=== PATIENT | male | born 1985 | race Caucasian/White ===

== ENCOUNTER 2017-11-30 23:40 | Emergency (ER) | payer OTHER ==
[~2017-11-30 23:40] MED LIST: INSU100V24 SQ; LANI SUBQ; OXYC-373 PO
--- NOTE | 2017-11-30 23:52 | ER Report ---
History and Physical Time Seen By MD: 23:51 Hx. of Stated Complaint: PT WAS WRESTLING AND FELT A POP IN R ANKLE, SWELLING HPI/ROS CHIEF COMPLAINT: ankle/leg injury HISTORY OF PRESENT ILLNESS: This is a 32 year old male. He was wrestling tonight , and felt a pop in lateral ankle area/lower leg. Severe pain and now with associated swelling. Hurts to move it or bear weight. Normal sensation. can move toes. Allergies: Coded Allergies: No Known Drug Allergies (Unverified , 10/31/16) Home Meds Active Scripts Oxycodone Hcl/Acetaminophen (PERCOCET 5-325 MG TABLET) 1 Each Tablet, 1 EACH PO Q4H Y for PAIN, #12 TAB 0 Refills Prov:SONYA RUBALCAVA MD 12/01/17 Reported Medications Propranolol Hcl (PROPRANOLOL HCL) 10 Mg Tablet, 10 MG PO BID 12/01/17 Escitalopram Oxalate (LEXAPRO) 20 Mg Tablet, 20 MG PO QDAY, TAB 12/01/17 Insulin Detemir (LEVEMIR) 100 Unit/Ml Injs, 100 UNIT SUBQ 12/01/17 Insulin Lispro 100 Un/Ml Vial (HUMALOG 100 U/ML VIAL) 100 Unit/1 Ml Vial, 100 UNIT SQ SLIDING SCALE, VIAL 10/06/14 Discontinued Reported Medications Insulin Glargine (LANTUS) 100 Unit/Ml Soln, 22 UNIT SUBQ HS 10/06/14 Discontinued Scripts Oxycodone Hcl/Acetaminophen (OXYCODONE-ACETAMINOPHEN 5-325) 1 Each Tablet, 1-2 TAB PO Q4H Y for PAIN, #30 TAB Prov:ERLIN PALACIOS PA-C 10/31/16 Insulin Glargine (LANTUS) 100 Unit/Ml Soln, 24 UNIT SUBQ QHS, #1 BOTTLE Prov:MARY LAST MD 10/07/14 Reviewed Nurses Notes: Yes Hx Smoking: Yes Smoking Status: Current: Every Day Smoker Exposure to Second Hand Smoke?: No Hx Substance Use Disorder: No Hx Alcohol Use: Yes Constitutional Vital Sign - Last 24 Hours 11/30/17 11/30/17 11/30/17 12/01/17 23:40 23:42 23:44 00:10 Temp 98.9 Pulse ??? 100 ??? Resp 18 B/P (MAP) 176/91 (119) 176/91 Pulse Ox 94 O2 Delivery Room Air 12/01/17 12/01/17 12/01/17 12/01/17 00:25 00:40 00:55 01:08 Pulse 83 ? B/P (MAP) 137/78 (97) 12/01/17 01:10 Pulse 76 Pulse Ox 91 Physical Exam General: Alert, no distress. Musculoskeletal: swelling and pain with palpation lower leg fibular side. Neuro: normal sensation Cardiovascular: Pulses and cap refill normal. Skin: no skin breakdown. Medical Decision Making EKG/Imaging Imaging RIGHT LOWER LEG and ANKLE: Indication: Pain and swelling. Technique: Multiple AP, lateral, and oblique views were obtained. Comparison: None. Findings: There is an oblique fracture through the distal fibula, with minimal displacement. The tibia and talus appear intact. There is no widening or subluxation of the joint. The proximal tibia and fibula are intact. There is normal mineralization. Localized soft tissue swelling is observed on the lateral aspect of the ankle. IMPRESSION: Acute fracture of the distal right fibula. Report Dictated By: Jose Rodriguez MD at 12/01/2017 12:28 AM ED Course/Re-evaluation ED Course Gave Ibuprofen and Lortab for pain. Zofran for nausea. Minimal improvement in pain. Splint applied as noted. Percocet given for pain instead. Instructions for follow-up with orthopedic surgery. Procedure Procedure: Posterior and stirrup half-cast placement. A half-cast/splint as noted above was applied. After application of the half- cast, I returned and re-examined the patient. The half-cast was adequately immobilizing the joint and distally the patient's circulation and sensation was intact. This was applied by the nuclear engineering technician. Decision to Disposition Date: Dec 01, 2017 Decision to Disposition Time: 01:49 Depart Departure Latest Vital Signs Vital Signs Date Time Temp Pulse Resp B/P (MAP) Pulse Ox O2 Delivery O2 Flow Rate FiO2 12/01/17 01:10 76 91 12/01/17 01:08 137/78 (97) 11/30/17 23:44 98.9 18 Room Air Impression: Primary Impression: Fracture of distal fibula Condition: Improved Disposition: HOME OR SELF-CARE New Scripts Oxycodone Hcl/Acetaminophen (PERCOCET 5-325 MG TABLET) 1 Each Tablet 1 EACH PO Q4H Y for PAIN, #12 TAB 0 Refills Prov: SONYA RUBALCAVA MD 12/01/17 Patient Instructions: Ankle Fracture (ED) Additional Instructions: Ibuprofen 200mg over the counter tablets, take 4 tablets three times a day with food. Percocet 5/325, one every 4 hours as needed for pain. Apply ice 20 minutes every 1-2 hours while awake. Keep the splint on until you see the orthopedic surgeon. No weight bearing with the crutches. Rest the injured area, keep it elevated while at rest. Problem Qualifiers Primary Impression: Fracture of distal fibula Encounter type: initial encounter Fracture type: closed Fracture morphology : unspecified fracture morphology Laterality: right Qualified Codes: S82.831A - Other fracture of upper and lower end of right fibula, initial encounter for closed fracture SONYA RUBALCAVA MD Nov 30, 2017 23:51
--- NOTE | 2017-12-01 00:35 | RADIOLOGY IMAGING REPORT ---
FACILITY: [facility] [place] PATIENT NAME: Rufus Rdz : 1985 MR: [id number] V: [id number] EXAM DATE: ORDERING PHYSICIAN: SONYA RUBALCAVA TECHNOLOGIST: Location: [facility] Patient: Rufus Rdz : 1985 Visit/Account:[id number] Date of Sevice: 11/30/2017 RIGHT LOWER LEG and ANKLE: Indication: Pain and swelling. Technique: Multiple AP, lateral, and oblique views were obtained. Comparison: None. Findings: There is an oblique fracture through the distal fibula, with minimal displacement. The tibi a and talus appear intact. There is no widening or subluxation of the joint. The proximal tibia and f ibula are intact. There is normal mineralization. Localized soft tissue swelling is observed on the l ateral aspect of the ankle. IMPRESSION: Acute fracture of the distal right fibula. Report Dictated By: Jose Rodriguez MD at 12/01/2017 12:28 AM Report E-Signed By: Jose Rodriguez MD at 12/01/2017 12:32 AM WSN:[id number]
--- NOTE | 2017-12-01 00:36 | RADIOLOGY IMAGING REPORT ---
FACILITY: [facility] [place] PATIENT NAME: Rufus Rdz : 1985 MR: [id number] V: [id number] EXAM DATE: ORDERING PHYSICIAN: SONYA RUBALCAVA TECHNOLOGIST: Location: Patient: Rufus Rdz : 1985 Visit/Account:[id number] Date of Sevice: 11/30/2017 RIGHT LOWER LEG and ANKLE: Indication: Pain and swelling. Technique: Multiple AP, lateral, and oblique views were obtained. Comparison: None. Findings: There is an oblique fracture through the distal fibula, with minimal displacement. The tibi a and talus appear intact. There is no widening or subluxation of the joint. The proximal tibia and f ibula are intact. There is normal mineralization. Localized soft tissue swelling is observed on the l ateral aspect of the ankle. IMPRESSION: Acute fracture of the distal right fibula. Report Dictated By: Jose Rodriguez MD at 12/01/2017 12:28 AM Report E-Signed By: Jose Rodriguez MD at 12/01/2017 12:32 AM WSN:[id number]
[2017-12-01] MEDS ORDERED: ACET/HYDROC 5/325MG TH ER ONLY 2 TAB/BOTTLE PO ONE (00:45)
[2017-12-01] MEDS ORDERED: APAP/HYDROCODONE 325/5 TAB PO ONE (00:45)
[2017-12-01] MEDS ORDERED: ONDANSETRON 4 MG ODT TH SL ONE (00:45)
[2017-12-01] MEDS ORDERED: IBUPROFEN 800 MG TAB PO ONE (00:45)
[2017-12-01] MEDS ORDERED: ONDANSETRON 4 MG ODT TABDP SL ONE (00:45)
[2017-12-01 01:08] VITALS: BP 137/78
[2017-12-01] MEDS ORDERED: PROP10TA58 PO (01:13)
[2017-12-01] MEDS ORDERED: ESCI20TA38 PO (01:13)
[2017-12-01] MEDS ORDERED: LEVI SUBQ (01:13)
[2017-12-01] MEDS ORDERED: oxyCODONE/ACETAMIN 5/325MG TH 2 TAB/BOTTLE PO ONE (01:50)
[2017-12-01] MEDS ORDERED: OXYC-865 PO (01:51)
== END 2017-12-01 02:00 | disposition home or self-care (01) ==
LOC: ER 23:42
DX: S82.431A Displaced oblique fracture of shaft of right fibula, initial encounter for closed fracture (principal); X58.XXXA Exposure to other specified factors, initial encounter; Y93.72 Activity, wrestling; F17.200 Nicotine dependence, unspecified, uncomplicated; Z79.899 Other long term (current) drug therapy
CPT/HCPCS: 73590; 73610; 99283; S0119

== ENCOUNTER → 2017-12-19 | Outpatient (CLI) | payer OTHER ==
[~2017-12-19] MED LIST changes: +ESCI20TA38 PO; +LEVI SUBQ; +OXYC-865 PO; +PROP10TA58 PO
--- NOTE | 2017-12-19 20:19 | RADIOLOGY IMAGING REPORT ---
FACILITY: [facility] PATIENT NAME: Rufus Rdz : 1985 MR: [id number] V: [id number] EXAM DATE: ORDERING PHYSICIAN: NATASHA HODGE TECHNOLOGIST: [place] [facility] [place] Rufus Rdz : 1985 Visit/Account:[id number] Date of Sevice: 12/19/2017 Venous Doppler ultrasound right lower extremity Indication: Right leg swelling and redness. Postop. Comparison: None Available Findings: Duplex Doppler and color flow imaging was performed. The common femoral, femoral, and popl iteal veins are all patent and compressible with normal Doppler wave forms. There are normal respons es to augmentation. The posterior tibial and peroneal veins are patent in the calf. The proximal greater saphenous vein i s also normal. Subcutaneous tissues are unremarkable. IMPRESSION: 1. No evidence of deep venous thrombosis of the right lower extremity. Report Dictated By: Garret Newman at 12/19/2017 8:13 PM Report E-Signed By: Garret Newman at 12/19/2017 8:15 PM WSN:[id number]
== END ==
LOC: US 18:57
PROVIDERS: ATTEND Orthopaedic Surgery
DX: Z47.89 Encounter for other orthopedic aftercare (principal)

== ENCOUNTER 2018-02-08 01:12 | Emergency (ER) | payer OTHER ==
--- NOTE | 2018-02-08 01:36 | ER Report ---
History and Physical Time Seen By MD: 01:36 Hx. of Stated Complaint: pts blood sugar low. gf called ems. ems reports blood sugar was 25. they gave a full amp of 25. pts bs came up to 98. bs was 71 upon arrival to ED. pt reports he took his normal amount of insulin HPI/ROS CHIEF COMPLAINT: Hypoglycemia HISTORY OF PRESENT ILLNESS: This is a 32-year-old male. Type 1 diabetes. Currently on Levemir insulin at nighttime and Humalog insulin as a baseline plus dosing for carbohydrate. He used to be on insulin pump but is not using that at the present time because of cost concerns. Last night he did not eat dinner but did have several drinks with friends. He knows in the past that alcohol increases his sugar. He did take his regular Humalog but did not take extra based on meal time as he did not eat dinner. He woke in the middle of night and was confused. EMS was called by his . They arrived and his blood sugar was found to be 25. An IV was placed with some difficulty and because of his distress and confusion they did give him a little Ativan to calm him down. An IV was started and they did give him an amp of dextrose. Blood sugar came up but then started to decrease again. The drove the to the hospital and glucose was rechecked again and was 71. Allergies: Coded Allergies: No Known Drug Allergies (Unverified , 10/31/16) Home Meds Active Scripts Oxycodone Hcl/Acetaminophen (PERCOCET 5-325 MG TABLET) 1 Each Tablet, 1 EACH PO Q4H PRN for PAIN, #12 TAB 0 Refills Prov:SONYA RUBALCAVA MD 12/01/17 Reported Medications Propranolol Hcl (PROPRANOLOL HCL) 10 Mg Tablet, 10 MG PO BID 12/01/17 Escitalopram Oxalate (LEXAPRO) 20 Mg Tablet, 20 MG PO QDAY, TAB 12/01/17 Insulin Detemir (LEVEMIR) 100 Unit/Ml Injs, 100 UNIT SUBQ 12/01/17 Insulin Lispro 100 Un/Ml Vial (HUMALOG 100 U/ML VIAL) 100 Unit/1 Ml Vial, 100 UNIT SQ SLIDING SCALE, VIAL 10/06/14 Reviewed Nurses Notes: Yes Hx Smoking: Yes Smoking Status: Current: Every Day Smoker Exposure to Second Hand Smoke?: No Hx Substance Use Disorder: No Hx Alcohol Use: Yes Constitutional Vital Sign - Last 24 Hours 02/08/18 02/08/18 02/08/18 02/08/18 01:12 01:17 01:22 01:30 Temp 97.6 Pulse ??? 60 Resp 16 B/P (MAP) 124/88 (100) 124/88 114/72 (86) Pulse Ox 99 O2 Delivery Room Air 02/08/18 02/08/18 02/08/18 02/08/18 01:42 01:45 02:00 02:12 Pulse 61 60 B/P (MAP) 123/83 (96) 112/71 (85) Pulse Ox 98 94 02/08/18 02/08/18 02/08/18 02/08/18 02:15 02:30 02:42 02:45 Pulse 61 B/P (MAP) 114/71 (85) 109/92 (98) 107/68 (81) Pulse Ox 93 02/08/18 02/08/18 02/08/18 02/08/18 03:00 03:15 03:30 03:45 Pulse 63 62 B/P (MAP) 109/78 (88) 90/53 (65) 91/50 (64) 86/48 (61) Pulse Ox 95 94 02/08/18 02/08/18 04:00 04:15 Pulse 76 B/P (MAP) 95/53 (67) 106/66 (79) Pulse Ox 89 Physical Exam General appearance: Alert no distress. Neuro: Alert and oriented 3. Still very groggy. Respiratory: Lungs clear to auscultation breathing easily. Cardiac: Regular rate and rhythm DIFFERENTIAL DIAGNOSIS: After history and physical exam differential diagnosis was considered for hypoglycemia in a type 1 diabetes patient, likely not enough to eat at night with his insulin use. Will monitor and have him eat food here and make sure this stabilizes. Medical Decision Making Data Points Laboratory Hematology Test 02/08/18 04:08 Whole Blood Glucose 137 mg/DL (75-110) Chemistry Test 02/08/18 04:08 Whole Blood Glucose 137 mg/DL (75-110) ED Course/Re-evaluation Clinical Indication for ER IV: IV Access ED Course We made sure the patient was eating. He was a little groggy from the situation this morning and the Ativan but was alert and enough to eat and communicate with me. Repeat glucose and about half an hour was a little lower at 69. Repeat half an hour later went up to the 130s, and this remained stable in hour later again. Decision to Disposition Date: Feb 08, 2018 Decision to Disposition Time: 04:09 Depart Departure Latest Vital Signs Vital Signs Date Time Temp Pulse Resp B/P (MAP) Pulse Ox O2 Delivery O2 Flow Rate FiO2 02/08/18 04:15 106/66 (79) 02/08/18 04:00 76 89 02/08/18 01:22 97.6 16 Room Air Impression: Primary Impression: Hypoglycemia associated with diabetes Condition: Improved Disposition: HOME OR SELF-CARE Referrals: MIKE GREEN PA-C (PCP) Patient Instructions: Hypoglycemia in a Person with Diabetes (ED) Additional Instructions: No changes to insulin at this time unless you start having more low blood sugars. Make an appointment to discuss with your regular doctor. Watch closely tonight for signs of low blood sugar. Return if needed for worsening symptoms that do not respond to food and liquid intake. SONYA RUBALCAVA MD Feb 08, 2018 01:36
[2018-02-08 04:15] VITALS: BP 106/66
== END 2018-02-08 04:28 | disposition home or self-care (01) ==
LOC: ER 01:58
DX: E10.649 Type 1 diabetes mellitus with hypoglycemia without coma (principal)
CPT/HCPCS: 36416; 82948; 99282

== ENCOUNTER → 2018-02-08 | Outpatient (CLI) | payer OTHER | LOC: AMB 00:37 | PROVIDERS: ATTEND Nurse Practitioner | DX: E10.649 Type 1 diabetes mellitus with hypoglycemia without coma (principal) | CPT/HCPCS: A0998 ==